=== PATIENT | male | born 1935 | race Caucasian/White ===

== ENCOUNTER 2017-11-27 16:53 | Inpatient (IN) ==
[2017-11-27] MEDS ORDERED: Naloxone 0.4 MG/ML INJ IVP PRN (20:07)
[2017-11-27] MEDS ORDERED: Acetaminophen 325 MG TABLET PO PRN (20:07)
--- NOTE | 2017-11-27 20:18 | Internal Med History&Physical ---
Date of Encounter: 11/27/17 Time of Encounter: 20:18 Internal Medicine - H&P: HPI Admitted From: Hospital to Hospital Transfer Plans for Post Hospital Care: Home History of present illness: Mr. Jo is a 82 year old male with history of recently diagnosed A. fib in July 2017 and started on aspirin, hypertension, chronic alcoholism 1 patient almost everyday for several years, remote a smoker quit almost 20 years back, history of mild stroke, COPD, CHF and unknown cardiac status was transferred from [facility] for further evaluation of syncope and possible CVA based on CT head report with acute versus subacute infarction right posterior cerebral artery. Patient lives alone and the her grandson checked on him almost every day. As per patient he fell on the floor and lost consciousness for a while nausea over the time around 8:00 tonight while going to the bed. When he regained consciousness he crawled to decreased to the bed. Today around 9:00 in the morning his grandson came to check on him and found him on the floor then he called EMS. Patient denied any prodromal symptoms before syncope attack. He never had syncope in the past. He denies chest pain, shortness of breath, palpitation, dizziness, sweating, headache, fever, chills, nausea, vomiting, abdominal pain, urinary complaint. Patient hit the back of the head and had superficial laceration on the scalp with minimal bleed. Past Med Surg Social Fam HX - Past Medical History Medical history: atrial fibrillation, CHF, COPD, glaucoma, hyperlipidemia, hypertension - Past Surgical History Surgical History: appendectomy - Social History Smoking Status: Former smoker Smokeless Tobacco Status: No Alcohol use: heavy Drug use: none Internal Medicine - H&P: Meds Aspirin [Lo-Dose Aspirin EC] 81 mg PO DAILY 11/27/17 [History] Folic Acid [Folic Acid] 1 mg PO DAILY 11/27/17 [History] Furosemide [Lasix] 40 mg PO BID 11/27/17 [History] Incruse Ellipta 1 puff IH DAILY 11/27/17 [History] Lisinopril [Zestril] 5 mg PO DAILY 11/27/17 [History] Metoprolol Succinate [Toprol Xl] 12.5 mg PO 11/27/17 [History] Estelline 5-325 mg 1 tab PO Q4H PRN 11/27/17 [History] Simvastatin [Zocor] 20 mg PO DAILY 11/27/17 [History] Symbicort 160/4.5 2 puff IH BID 11/27/17 [History] Ventolin Hfa 2 puff PO Q6H PRN 11/27/17 [History] 3 Allergy/AdvReac Type Severity Reaction Status Date / Time levofloxacin [From Levaquin] Allergy Rash Verified 11/27/17 20:26 Penicillins Allergy Anaphylaxis Verified 11/27/17 20:26 Sulfa (Sulfonamide Allergy Rash Verified 11/27/17 20:26 Antibiotics) All Systems PM: A 10-system review of systems was performed and is negative for pertinent findings except as documented above in the HPI. - Constitutional Vitals: Temp Pulse Resp BP Pulse Ox 98.2 F 63 18 112/85 98 11/27/17 18:44 11/27/17 18:44 11/27/17 18:44 11/27/17 18:44 11/27/17 18:44 Exam: General appearance: No acute distress, A&O X 3 Head exam: 2 Superficial linear laceration over the scalp and parietal area with no active bleeding. Eye exam: EOMI, PERRLA ENT exam: Moist oral mucosa Neck nontender, supple Respiratory exam: Clear to auscultation bilaterally Cardiovascular exam: Bradycardic with irregular rhythm, no systolic murmur Abdominal exam: Soft, nontender, nondistended, positive bowel sounds Extremities exam: No calf tenderness, no pedal edema Present: Skin-no rash, warm, dry, intact Neurological exam: Alert, awake, oriented 3, CN II-XII intact, no focal deficits. No facial droop. Normal speech. Normal gait. Motor 5 x 5 in all extremity except for +4/5 in right upper extremity but as per son it has been chronic since August this year - Assessment and plan (1) Syncope Current Visit: Yes Status: Acute Assessment and plan: needs to rule out underlying cardioneural etiology is contributing factor. Patient has recurrent fall and generalized weakness for last several months and has been undergoing physiotherapy intermittently. Recently diagnosed A. fib in July not on any anticoagulation except aspirin. CT brain done and was or ER with abnormal finding acute versus subacute right posterior cerebral artery infarction therefore transferred to this hospital for advance care. Will do CVA workup MRI brain, carotid ultrasound, echocardiogram. Will continue aspirin and statin. Beta petr on hold as patient was found to be bradycardic. Continue telemetry. Will consult neurologist after having a stroke workup. Patient does not have any new neurological focal deficit and seems like CT finding more chronic. Patient also needs to get assess by consumer safety officer that can be done on routine basis if needed by rounding physician. Fall, aspiration, seizure precaution. Swallow study. Qualifiers: Syncope type: heat syncope Encounter type: initial encounter Qualified Code(s): T67.1XXA - Heat syncope, initial encounter (2) Fall Current Visit: Yes Status: Acute Assessment and plan: The current fall. 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 May need long-term placement. Qualifiers: Encounter type: initial encounter Qualified Code(s): W19.XXXA - Unspecified fall, initial encounter (3) A-fib Current Visit: Yes Status: Chronic Assessment and plan: No RVR. Patient is not on anticoagulation. Telemetry. Beta petr on hold as patient was found to be bradycardic. Echocardiogram ordered. Will discuss about restarting anticoagulation based on Brett score. Qualifiers: Atrial fibrillation type: chronic Qualified Code(s): I48.2 - Chronic atrial fibrillation (4) Chronic alcoholism Current Visit: Yes Status: Chronic Assessment and plan: Alcohol level ordered. Chronic alcohol or drinking but not sure about withdrawal. Serial protocol is started. Banana bag also started. Ativan when necessary (5) Hypertension Current Visit: Yes Status: Acute Assessment and plan: Hold Lasix now. Close monitoring. Adjust home medication on discharge if needed Qualifiers: Hypertension type: essential hypertension Qualified Code(s): I10 - Essential (primary) hypertension (6) DVT prophylaxis Current Visit: Yes Status: Acute Assessment and plan: SCDs - Time Spent With Patient Total time spent is greater than 50% in coordination of care (as documented) at patient's floor/unit and/or counseling patient:
[2017-11-27] MEDS ORDERED: *HR* LORazepam 2 MG/ML VIAL IVP PRN (20:19)
[2017-11-27] MEDS ORDERED: MVI, adult with vitamin K 10 ML in 0.9 % Sodium Chloride 1,000 ML IVC ONE (20:19)
[2017-11-27 20:56] LABS: Hemoglobin 11.5 g/dL (12.9-16.9)
[2017-11-27 20:58] LABS: Basophils # 0.1 K/mcL (0.0-0.2); Basophils % 0.6 %; Eosinophils # 0.1 K/mcL (0.0-0.6); Eosinophils % 0.9 %; Hematocrit 33.8 % (37.5-50.1); Immature Granulocytes % 0.4 % (0-4); Immature Platelets 4.2 % (1.1-6.1); Lymphocytes # 1.8 K/mcL (0.6-4.6); Lymphocytes % 23.2 %; Mean Corpuscular Hemoglobin 33.3 pg (28.0-33.3); Mean Platelet Volume 10.9 fL (9.4-12.4); Monocytes # 0.7 K/mcL (0.0-1.3); Monocytes % 8.4 %; Neutrophils # 5.2 K/mcL (1.6-8.9); Red Blood Count 3.45 M/mcL (4.19-5.50); Red Cell Distribution Width 12.7 % (11.5-14.5); Segmented Neutrophils % 66.5 %
[2017-11-27] MEDS: *HR* HYDROcodone/Acet 5/325 mg TABLET PO PRN (20:59)
[2017-11-27] MEDS ORDERED: 0.9 % Sodium Chloride 1,000 ML IVC SCH (21:00)
[2017-11-27 21:03] LABS: INR 1.3; Prothrombin Time 14.1 Seconds (9.4-12.1)
[2017-11-27 21:13] LABS: Platelet Count 79 K/mcL (140-400)
[2017-11-27 21:24] LABS: Alanine Aminotransferase 12 Units/L (7-52); Albumin 2.9 g/dL (3.5-5.7); Albumin/Globulin Ratio 1.5 (1.1-2.2); Alkaline Phosphatase 108 Units/L (34-104); Aspartate Amino Transferase 40 Units/L (13-39); BUN/Creatinine Ratio 10 (6-26); Bilirubin,Total 2.9 mg/dL (0.3-1.0); Blood Urea Nitrogen 7 mg/dL (8-23); Calcium 8.1 mg/dL (8.6-10.3); Carbon Dioxide 21 mEq/L (23-29); Chloride 108 mEq/L (98-107); Creatine Kinase 287 Units/L (30-223); Ethanol 37 mg/dL (Less than 10); Globulin 1.9 g/dL (2.4-3.5); Glucose 62 mg/dL (70-105); Osmolality,Calculated 294 (280-300); Potassium 3.9 mEq/L (3.5-5.1); Sodium 144 mEq/L (136-145); Total Protein 4.8 g/dL (6.4-8.9); Troponin I 0.03 ng/mL (< 0.04); eGFR For African Americans > 60 (> 60); eGFR For Non-African Americans > 60 (> 60)
[2017-11-27] MEDS: Folic Acid 1 MG TABLET PO SCH (22:47)
[2017-11-27] MEDS: Aspirin Enteric Coated 81 MG Tablet PO SCH (22:47)
[2017-11-27] MEDS: Metoprolol XL (24 HR) Succ 25 MG TAB.ER.24H PO SCH (22:48)
[2017-11-28] MEDS: Budesonide/Formoterol 160/4.5 MDI IH SCH ×3 (03:13→20:51)
[2017-11-28 04:09] LABS: Troponin I 0.04 ng/mL (< 0.04)
[2017-11-28] MEDS: *HR* HYDROcodone/Acet 5/325 mg TABLET PO PRN ×2 (05:08→15:31)
[2017-11-28 05:42] LABS: Bilirubin,Urine Moderate (Negative); Blood,Urine Negative (Negative); Clarity,Urine Cloudy (Clear); Color,Urine Orange (Yellow); Glucose,Urine (UA) Normal (Normal); Ketones,Urine 40 mg/dL (Negative); Leukocyte Esterase,Urine Moderate (Negative); Nitrite,Urine Negative (Negative); Protein,Urine Trace mg/dL (Neg-Trace); Specific Gravity,Urine 1.026 (1.010-1.025); Urobilinogen,Urine Normal (Normal)
[2017-11-28 05:44] LABS: Squamous Epithelial Cell,Urine Many per lpf (None-Few); WBC,Urine 50-100 per hpf (0-3)
[2017-11-28 05:50] LABS: Amphetamine Screen,Urine Negative ng/mL (Cutoff=1000); Barbiturate Screen,Urine Negative ng/mL (Cutoff=200); Benzodiazepines Screen,Urine Negative ng/mL (Cutoff=200); Cannabinoid Screen,Urine Negative ng/mL (Cutoff = 50); Cocaine Screen,Urine Negative ng/mL (Cutoff= 300); Opiate Screen,Urine Positive ng/mL (Cutoff=300); Phencyclidine Screen,Urine Negative ng/mL (Cutoff=25)
[2017-11-28 05:55] LABS: Bacteria,Urine Few per hpf (None-Few); RBC,Urine 0-3 per hpf (0-3)
[2017-11-28 05:56] LABS: Mucus,Urine Few (Few)
[2017-11-28] MEDS ORDERED: Aspirin Enteric Coated 81 MG Tablet PO SCH (09:00)
[2017-11-28] MEDS ORDERED: INCRUSE ELLIPTA IH SCH (09:00)
[2017-11-28] MEDS ORDERED: Aspirin 81 MG TAB.CHEW PO SCH (09:00)
[2017-11-28] MEDS ORDERED: *HR* LORazepam 2 MG/ML VIAL IVP PRN ×2 (09:27)
--- NOTE | 2017-11-28 09:27 | Internal Med Progress Note ---
Date of Encounter: 11/28/17 Time of Encounter: 09:26 - Assessment and plan (1) CVA (cerebral vascular accident) Current Visit: Yes Status: Acute Assessment and plan: Recently diagnosed A. fib in July not on any anticoagulation except aspirin. CT brain done and was or ER with abnormal finding acute versus subacute right posterior cerebral artery infarction therefore transferred to this hospital for advance care. carotid ultrasound, echocardiogram pending, continue aspirin and statin. Physical therapy order, fall precautions Continue telemetry. Neurology consult MRI of the brain showed:1. No acute intracranial abnormality. 2. 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 3. Diffuse parenchymal volume loss with mild chronic white matter microvascular ischemic changes. 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 May need long-term placement. Qualifiers: Encounter type: initial encounter Qualified Code(s): W19.XXXA - Unspecified fall, initial encounter (4) A-fib Current Visit: Yes Status: Chronic Assessment and plan: No RVR. Patient is not on anticoagulation (alcohol abuse and high risk of falling). Telemetry. Echocardiogram ordered. Qualifiers: Atrial fibrillation type: chronic Qualified Code(s): I48.2 - Chronic atrial fibrillation (5) Chronic alcoholism Current Visit: Yes Status: Chronic Assessment and plan: Alcohol level was 37 Chronic alcohol or drinking but not sure about withdrawal. Drinks 1 pint of whiskey every day Start low dose Librium, Ativan IV as needed (6) Hypertension Current Visit: Yes Status: Acute Assessment and plan: Hold Lasix. Close monitoring. Adjust home medication on discharge if needed May continue lisinopril The patient was on Lopressor 12.5 mg twice a day but was found to be bradycardic , this was switched to Toprol 12.5 mg daily, his currently stable Qualifiers: Hypertension type: essential hypertension Qualified Code(s): I10 - Essential (primary) hypertension (7) Rhabdomyolysis Current Visit: Yes Status: Acute Assessment and plan: Due to trauma Mild hydration Qualifiers: Rhabdomyolysis type: traumatic Encounter type: sequela Qualified Code(s) : T79.6XXS - Traumatic ischemia of muscle, sequela - Time Spent With Patient Total time spent is greater than 50% in coordination of care (as documented) at patient's floor/unit and/or counseling patient: - Subjective Interval history: Complains of pain everywhere but less than yesterday, denies any dizziness, no abdominal pain, fevers, chest or shortness of breath, no dysuria or diarrhea - Constitutional Vitals: Temp Pulse Resp BP Pulse Ox 97.9 F 63 16 127/70 98 11/28/17 07:45 11/28/17 07:45 11/28/17 07:50 11/28/17 07:45 11/28/17 07:50 General appearance: Present: A&O X 3 - Head Head exam: Present: atraumatic, normocephalic - Eye Eye exam: Present: conjuntiva pink, sclera anicteric. 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 - Neck Neck exam general surgery: Present: supple, trachea midline. Absent: lymphadenopathy Additional comments: 2 cm occipital scalp laceration not infected - Respiratory Respiratory exam: Present: decreased breath sounds, CTAB. Absent: accessory muscle use, rales, rhonchi, wheezes - Cardiovascular Cardiovascular exam: Present: RRR, +S1, +S2. Absent: diastolic murmur, gallop, rubs, systolic murmur - GI/Abdominal GI/Abdominal exam: Present: normal bowel sounds, soft, no peritoneal signs. Absent: distended, tenderness - Extremities Exam Extremities exam: Present: warm, radial pulses palpable and symmetrical. Absent : calf tenderness, cyanotic, pedal edema Additional comments: left upper extremity minimal weakness - Neurological Exam Neurological exam: Present: CN II-XII intact, oriented X3, no focal deficits. Absent: pronater drift, facial droop, speech deficit - Skin Skin exam: Present: dry, intact Internal Medicine: Result - Labs CBC & Chem 7: 11/27/17 20:42 11/27/17 20:42 Labs: Short CBC 11/27/17 Range/Units 20:42 WBC 7.8 (4.3-11.1) K/mcL Hgb 11.5 L (12.9-16.9) g/dL Hct 33.8 L (37.5-50.1) % Plt Count 79 L (140-400) K/mcL Neutrophils # 5.2 (1.6-8.9) K/mcL BMP 11/27/17 20:42 Sodium 144 Potassium 3.9 Chloride 108 H Carbon Dioxide 21 L BUN 7 L Creatinine 0.70 Glucose 62 L Calcium 8.1 L Cardiac Enzymes 11/27/17 11/28/17 Range/Units 20:42 03:17 Troponin I 0.03 0.04 H* (< 0.04) ng/mL Liver Function 11/27/17 Range/Units 20:42 Total Bilirubin 2.9 H (0.3-1.0) mg/dL AST 40 H (13-39) Units/L ALT 12 (7-52) Units/L Alkaline Phosphatase 108 H (34-104) Units/L Albumin 2.9 L (3.5-5.7) g/dL Urine 11/28/17 Range/Units 05:20 Urine Color [place] A (Yellow) Urine Clarity Cloudy A (Clear) Urine pH 6.0 (5.0-8.0) pH Units Ur Specific [place] 1.026 H (1.010-1.025) Urine Protein Trace (Neg-Trace) mg/dL Urine Glucose (UA) Normal (Normal) mg/dL - ABG Interpretation ABG results: PT/INR, D-dimer PT 14.1 Seconds (9.4-12.1) H 11/27/17 20:42 - Impressions Impressions Brain MRI 11/27/17 20:22 IMPRESSION: 1. No acute intracranial abnormality. 2. 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 3. Diffuse parenchymal volume loss with mild chronic white matter microvascular ischemic changes. D/ / Frnacesco Mantilla / Francesco Mantilla Interpreting Provider: Francesco Mantilla - VTE Documentation of Mechanical Device: Intermittent pneumatic compression device Consult Discharge Plan - Plan Referrals: Jayden Romero MD [Primary Care Provider] -
--- NOTE | 2017-11-28 10:40 | Neurology - Consult Note ---
<Tigre Marlow - Last Filed: 11/28/17 10:35> Date of Encounter: 11/28/17 Time of Encounter: 10:35 Assessment and Plan (1) CVA (cerebral vascular accident) Current Visit: Yes Status: Acute Neuro exam nonfocal and nonlateralizing. 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 hx of afib not on anticoagulation currently he is rate controlled. Continue aspirin and statin, echocardiogran, carotid duplex pending. 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 both times he was getting up from sitting position. orthostatic vitals ordered patient also on norco: would stop before discharge as it likely increase chance of falls along with use of alcohol. Qualifiers: Encounter type: initial encounter Qualified Code(s): W19.XXXA - Unspecified fall, initial encounter (3) A-fib Current Visit: Yes Status: Chronic afib without rvr on metoprolol not good candidate to anticoagulate due to hx of falls, alcohol use, right eye blindness, lives alone at home and relines on walker to ambulate Qualifiers: Atrial fibrillation type: chronic Qualified Code(s): I48.2 - Chronic atrial fibrillation (4) Hypertension Current Visit: Yes Status: Acute controlled. continue home meicaitons. Qualifiers: Hypertension type: essential hypertension Qualified Code(s): I10 - Essential (primary) hypertension (5) Chronic alcoholism Current Visit: Yes Status: Chronic on ciwa History of Present Illness Chief complaint: syncope HPI: Mr. Jo is a 82 year old male presented with chief complaint of syncope and fall. Patient reports walking to his bed Tuesday at 8 PM night and falling with loss of consciousness. Patient's son found him Tuesday morning at 9 AM on the floor and called EMS. Patient denies having chest pain, shortness of breath, palpitations, dizziness, numbness, tingling, weakness on one side compared to the other, slurred speech before falling. Patient presented to [facility] ER for evaluation and CT of the head showed acute versus subacute infarct in the right posterior cerebral artery. He was then transferred to [address]. He was also found to have superficial laceration of the scalp in the occipital region. He reports this has happened in the past 6 months ago when he was walking to his bathroom and also fell again but did not lose consciousness and was able to get up by himself. He denied head trauma at that time. Patient denies history of seizure, CVA, head trauma. 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 Patient uses a walker at home. Patient lives alone at home and has family members check on him once a day. Past Med Surg Social Fam HX - Past Medical History Medical history: atrial fibrillation, CHF, COPD, glaucoma, hyperlipidemia, hypertension - Past Surgical History Surgical History: appendectomy - Social History Smoking Status: Former smoker Smokeless Tobacco Status: No Alcohol use: heavy Drug use: none Medications and Allergies Albuterol Sulfate [Ventolin Hfa] 2 puff IH Q6H PRN 11/27/17 [History] Aspirin [Lo-Dose Aspirin EC] 81 mg PO DAILY 11/27/17 [History] Budesonide/Formoterol 160/4.5 [Symbicort 160/4.5] 2 puff IH BIDR 11/27/17 [ History] Folic Acid [Folic Acid] 1 mg PO DAILY 11/27/17 [History] Furosemide [Lasix] 40 mg PO BID 11/27/17 [History] HYDROcodone/Acet 5/325 mg [[place] 5-325 mg] 1 tab PO Q4H PRN 11/27/17 [History] Lisinopril [Zestril] 5 mg PO DAILY 11/27/17 [History] Metoprolol Succinate [Toprol Xl] 12.5 mg PO BID 11/27/17 [History] Simvastatin [Zocor] 20 mg PO DAILY 11/27/17 [History] Umeclidinium [place] [Incruse Ellipta] 1 puff IH DAILY 11/27/17 [History] 3 Allergy/AdvReac Type Severity Reaction Status Date / Time levofloxacin [From Levaquin] Allergy Rash Verified 11/27/17 20:26 Penicillins Allergy Anaphylaxis Verified 11/27/17 20:26 Sulfa (Sulfonamide Allergy Rash Verified 11/27/17 20:26 Antibiotics) All Systems: The remainder of the systems were reviewed and are negative Review of Systems: Constitutional: Denies fever, chills HEENT: Denies headache, vision changes, neck pain, sore throat, rhinorrhea Heart: Denies chest pain palpitations Lungs: Denies shortness of breath cough Abdomen: Denies abdominal pain nausea vomiting diarrhea Back: Denies back pain Kidney: Denies dysuria, hematuria Skin: warm and dry Extremities: Reports lower extremity swelling, reports pain in bilateral shoulders, bilateral hip. Neuro: As per history of present illness Physical Examination - Vital Signs Vital Signs: Initial Vital Signs Temp Pulse Resp BP Pulse Ox 98.2 F 63 18 112/85 98 11/27/17 18:44 11/27/17 18:44 11/27/17 18:44 11/27/17 18:44 11/27/17 18:44 - Exam Exam: General: Pleasant without distress HEENT: Superficial laceration of the occipital region of head without bleeding, neck nontender to palpation, absent lymphadenopathy, Moist Mucous Membranes, Heart: Irregularly irregular rhythm with no murmur Lungs: Clear to auscultation bilaterally Abdomen: Soft nontender, nondistended positive bowel sounds Skin: warm and dry Extremities: 2+ pedal edema bilaterally Vascular: Pedal and radial pulses 2 out of 4 - Constitutional General appearance: comfortable - Neurologic Sensorimotor examination: intact Motor examination - right side: 4/5: deltoids, biceps, triceps, wrist flexion, wrist extension, security director, hip flexors, tibialis Anterior, quadriceps, toe extension (EHL), plantarflexion Motor examination - left side: 4/5: deltoids, biceps, triceps, wrist flexion, wrist extension, hip flexors, security director, quadriceps, tibialis Anterior, toe extension (EHL), plantarflexion Detailed sensory examination: light touch Reflexes: Biceps: 3+, Triceps: 3+, Brachioradialis: 3+, Patella: 3+, Achilles: 3 + Mental Status Examination: awake, alert, oriented to person, oriented to place, oriented to time, follows commands appropriately, answers questions appropriately, no agnosia, no aphasia, no aproxia Cranial nerve examination: PERRL (On the left only. Right pupil is constantly dilated this is, chronic and does not react to light), EOMI, sensory to face intact, mastication intact, no facial asymmetry is present, no dysarthria, hearing is intact symmetrically, flexes SCM and trapezius muscles symmetrically with full power, tongue protrudes midline, no atrophy or facial fasiculations present Cerebellar examination: no dysmetria, no difficulty with rapid alternating movements Results - Laboratory Findings CBC and BMP: 11/27/17 20:42 11/27/17 20:42 Abnormal lab findings: Abnormal lab results RBC 3.45 M/mcL (4.19-5.50) L 11/27/17 20:42 Hgb 11.5 g/dL (12.9-16.9) L 11/27/17 20:42 Hct 33.8 % (37.5-50.1) L 11/27/17 20:42 Plt Count 79 K/mcL (140-400) L 11/27/17 20:42 PT 14.1 Seconds (9.4-12.1) H 11/27/17 20:42 Chloride 108 mEq/L (98-107) H 11/27/17 20:42 Carbon Dioxide 21 mEq/L (23-29) L 11/27/17 20:42 BUN 7 mg/dL (8-23) L 11/27/17 20:42 Glucose 62 mg/dL (70-105) L 11/27/17 20:42 POC Glucose 66 mg/dL (70-99) L 11/28/17 05:25 Calcium 8.1 mg/dL (8.6-10.3) L 11/27/17 20:42 Total Bilirubin 2.9 mg/dL (0.3-1.0) H 11/27/17 20:42 AST 40 Units/L (13-39) H 11/27/17 20:42 Alkaline Phosphatase 108 Units/L (34-104) H 11/27/17 20:42 Creatine Kinase 403 Units/L (30-223) H 11/28/17 03:17 Troponin I 0.04 ng/mL (< 0.04) H* 11/28/17 09:10 Serum Total Protein 4.8 g/dL (6.4-8.9) L 11/27/17 20:42 Albumin 2.9 g/dL (3.5-5.7) L 11/27/17 20:42 Globulin 1.9 g/dL (2.4-3.5) L 11/27/17 20:42 Urine Color [place] (Yellow) A 11/28/17 05:20 Urine Clarity Cloudy (Clear) A 11/28/17 05:20 Ur Specific [place] 1.026 (1.010-1.025) H 11/28/17 05:20 Urine Ketones 40 mg/dL (Negative) H 11/28/17 05:20 Urine Bilirubin Moderate (Negative) H 11/28/17 05:20 Ur Leukocyte Esterase Moderate (Negative) H 11/28/17 05:20 Urine Microscopic WBC 50-100 per hpf (0-3) H 11/28/17 05:20 Ur Squamous Epith Cells Many per lpf (None-Few) H 11/28/17 05:20 Urine Opiates Screen Positive ng/mL (Rwjvar=115) H 11/28/17 05:20 Ethyl Alcohol 37 mg/dL (Less than 10) H 11/27/17 20:42 Consult Discharge Plan - Plan Referrals: Jayden Romero MD [Primary Care Provider] - <Augustin Estrada - Last Filed: 11/28/17 16:33> Date of Encounter: 11/28/17 Time of Encounter: 16:23 Assessment and Plan (1) CVA (cerebral vascular accident) Current Visit: Yes Status: Acute As above. I suspect that this patient may have experienced a cardioembolic event given the history of atrial fibrillation. The echocardiogram however this time reveals no embolic source. Carotid Doppler study reveals nonstenotic plaquing and calcification at the bifurcation bilaterally. He does however have other risk factors including his age, and a history of drinking. I am also concerned that he is not an optimal patient for anticoagulation because of the recent turn of events. He did fall and strike his head and suffering some scalp trauma. But he was not able to get up on his own he was not found until the next morning. I will recommend increasing his aspirin to 325 mg along with a statin. Might consider changing his blockers as his heart rate is been running in the 40s and 50s which may have been a potential cause of his syncope. The EEG was negative for seizure activity. We will reassess him tomorrow. 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 The case was discussed with the internal medicine resident on service. I agree with his assessment and documentation as stated above. I did review his EEG which was essentially normal however I did reveal sinus bradycardia at 48 bpm. Currently he is awake and alert sitting up in bed talking with other family members. He lives home alone and apparently fell on the floor was not able to contact family because he could not reach his family could not get off the floor. His son found him 9:00 in the morning the following day. I did review the MRI scan of the brain which reveals subacute infarct in the right parietal occipital lobe region with laminar necrosis present. He also has a history of atrial fibrillation. All Systems: The remainder of the systems were reviewed and are negative Review of Systems: Agree with review of systems as above. Physical Examination - Vital Signs Vital Signs: Initial Vital Signs Temp Pulse Resp BP Pulse Ox 98.2 F 63 18 112/85 98 11/27/17 18:44 11/27/17 18:44 11/27/17 18:44 11/27/17 18:44 11/27/17 18:44 - Neurologic Cranial nerve examination: PERRL (Patient is blind in his right eye) Results - Laboratory Findings CBC and BMP: 11/27/17 20:42 11/27/17 20:42 Abnormal lab findings: Abnormal lab results RBC 3.45 M/mcL (4.19-5.50) L 11/27/17 20:42 Hgb 11.5 g/dL (12.9-16.9) L 11/27/17 20:42 Hct 33.8 % (37.5-50.1) L 11/27/17 20:42 Plt Count 79 K/mcL (140-400) L 11/27/17 20:42 PT 14.1 Seconds (9.4-12.1) H 11/27/17 20:42 Chloride 108 mEq/L (98-107) H 11/27/17 20:42 Carbon Dioxide 21 mEq/L (23-29) L 11/27/17 20:42 BUN 7 mg/dL (8-23) L 11/27/17 20:42 Glucose 62 mg/dL (70-105) L 11/27/17 20:42 POC Glucose 66 mg/dL (70-99) L 11/28/17 05:25 Calcium 8.1 mg/dL (8.6-10.3) L 11/27/17 20:42 Total Bilirubin 2.9 mg/dL (0.3-1.0) H 11/27/17 20:42 AST 40 Units/L (13-39) H 11/27/17 20:42 Alkaline Phosphatase 108 Units/L (34-104) H 11/27/17 20:42 Creatine Kinase 403 Units/L (30-223) H 11/28/17 03:17 Troponin I 0.04 ng/mL (< 0.04) H* 11/28/17 09:10 Serum Total Protein 4.8 g/dL (6.4-8.9) L 11/27/17 20:42 Albumin 2.9 g/dL (3.5-5.7) L 11/27/17 20:42 Globulin 1.9 g/dL (2.4-3.5) L 11/27/17 20:42 Urine Color [place] (Yellow) A 11/28/17 05:20 Urine Clarity Cloudy (Clear) A 11/28/17 05:20 Ur Specific [place] 1.026 (1.010-1.025) H 11/28/17 05:20 Urine Ketones 40 mg/dL (Negative) H 11/28/17 05:20 Urine Bilirubin Moderate (Negative) H 11/28/17 05:20 Ur Leukocyte Esterase Moderate (Negative) H 11/28/17 05:20 Urine Microscopic WBC 50-100 per hpf (0-3) H 11/28/17 05:20 Ur Squamous Epith Cells Many per lpf (None-Few) H 11/28/17 05:20 Urine Opiates Screen Positive ng/mL (Vnfggk=535) H 11/28/17 05:20 Ethyl Alcohol 37 mg/dL (Less than 10) H 11/27/17 20:42
[2017-11-28] MEDS ORDERED: Perflutren Lipid Microsphere 1.3 ML in 0.9 % Sodium Chloride 8.7 ML IVP ONE (10:43)
[2017-11-28] MEDS ORDERED: Perflutren Lipid Microsphere 2 ML VIAL ONE (10:47)
[2017-11-28] MEDS: Metoprolol XL (24 HR) Succ 25 MG TAB.ER.24H PO SCH (12:38)
[2017-11-28] MEDS: Aspirin Enteric Coated 81 MG Tablet PO SCH (12:38)
[2017-11-28] MEDS: Folic Acid 1 MG TABLET PO SCH (12:38)
--- NOTE | 2017-11-28 16:37 | EEG/EMG/Oth Biometrics Report ---
EEG Procedure Report Date of procedure: 11/28/17 EEG Procedure: Routine EEG Procedure Note: This is a report of a 21 channel bipolar and referential montage EEG. A posterior dominant rhythm consisted of 8-10 Hz low voltage alpha frequency identified symmetrically in the posterior head regions. This rhythm attenuates symmetrically evaluating. Hyperventilation is not performed in recording. No sleep activity is identified during the study. Photostimulation is performed and does not produce a driving response. The EKG rhythm strip reveals sinus bradycardia at about 48 bpm. Impressions: This EEG recording is within normal limits. There is no evidence of epileptiform activity identified during the study. Comment: Sinus bradycardia at 48 bpm is present. Please correlate clinically.
[2017-11-28] MEDS: 0.9 % Sodium Chloride 1,000 ML IVC SCH (23:23)
--- NOTE | 2017-11-29 08:04 | Neurology Progress Note ---
<Tigre Marlow - Last Filed: 11/29/17 09:06> Date of Encounter: 11/29/17 Time of Encounter: 09:07 Assessment and Plan (1) CVA (cerebral vascular accident) Current Visit: Yes Status: Acute Neuro exam nonfocal and nonlateralizing. 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 hx of afib not on anticoagulation currently he is rate controlled. EEG negative for epileptiform activity echocardiogran did not show evidence of cardioemboic source carotid duplex preliminary: Non stenotic highly irregular calcified plaque located in the Bifurcation/ICA bilaterally. PT/OT-recommend skilled services outpatient. continue aspirin and statin. 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 both times he was getting up from sitting position. patient also on norco: would stop before discharge as it likely increase chance of falls along with use of alcohol. will need skilled rehab services. Qualifiers: Encounter type: initial encounter Qualified Code(s): W19.XXXA - Unspecified fall, initial encounter (3) A-fib Current Visit: Yes Status: Chronic afib without rvr during EEG patients HR was in 40s. may have sick sinus syndrome which could be cause of fall/syncope. metoprolol held by primary team not good candidate to anticoagulate due to hx of falls, alcohol use, right eye blindness, lives alone at home and relines on walker to ambulate started on aspirin 325 Qualifiers: Atrial fibrillation type: chronic Qualified Code(s): I48.2 - Chronic atrial fibrillation (4) Hypertension Current Visit: Yes Status: Acute controlled. continue home meicaitons. Qualifiers: Hypertension type: essential hypertension Qualified Code(s): I10 - Essential (primary) hypertension (5) Chronic alcoholism Current Visit: Yes Status: Chronic on ciwa Subjective Principal diagnosis: CVA Interval history: This morning patient complains of soreness in b/l hips and shoulders. Patient unable to transfer from bed to bathroom by himself needed maximum assistance. Around midnight patient was confused and thought he was at home. Objective - Constitutional Vitals: Temp Pulse Resp BP Pulse Ox 97.4 F L 56 17 127/63 94 11/29/17 07:51 11/29/17 07:51 11/29/17 07:51 11/29/17 07:51 11/29/17 07:51 - Neurological Exam Sensorimotor examination: Present: intact Motor examination - right side: 4/5: deltoids, biceps, triceps, wrist flexion, wrist extension, head mixer, hip flexors, tibialis Anterior, quadriceps, toe extension (EHL), plantarflexion Motor examination - left side: 4/5: deltoids, biceps, triceps, wrist flexion, wrist extension, hip flexors, head mixer, quadriceps, tibialis Anterior, toe extension (EHL), plantarflexion Sensation intact: Present: light touch Reflexes: Biceps: 3+, Triceps: 3+, Brachioradialis: 3+, Patella: 3+, Achilles: 3 + Mental Status Examination: Present: awake, alert, oriented to person, oriented to place, oriented to time, follows commands appropriately, answers questions appropriately, no agnosia, no aphasia, no aproxia Cranial nerve examination: Present: PERRL (Patient is blind in his right eye), EOMI Cerebellar examination: Present: no dysmetria, no difficulty with rapid alternating movements - Other Additional findings: General: without distress Heart: Irregularly irregular Lungs: Wheezing, diminished bilaterally Abdomen: Soft nontender, nondistended positive bowel sounds Skin: warm and dry Extremities: 1+ pedal edema Vascular: Pedal and radial pulses 2 out of 4 - VTE Documentation of Mechanical Device: Intermittent pneumatic compression device Results - Laboratory Findings CBC and BMP: 11/27/17 20:42 11/27/17 20:42 Abnormal lab findings: Abnormal lab results RBC 3.45 M/mcL (4.19-5.50) L 11/27/17 20:42 Hgb 11.5 g/dL (12.9-16.9) L 11/27/17 20:42 Hct 33.8 % (37.5-50.1) L 11/27/17 20:42 Plt Count 79 K/mcL (140-400) L 11/27/17 20:42 PT 14.1 Seconds (9.4-12.1) H 11/27/17 20:42 Chloride 108 mEq/L (98-107) H 11/27/17 20:42 Carbon Dioxide 21 mEq/L (23-29) L 11/27/17 20:42 BUN 7 mg/dL (8-23) L 11/27/17 20:42 Glucose 62 mg/dL (70-105) L 11/27/17 20:42 POC Glucose 143 mg/dL (70-99) H 11/28/17 19:21 Calcium 8.1 mg/dL (8.6-10.3) L 11/27/17 20:42 Total Bilirubin 2.9 mg/dL (0.3-1.0) H 11/27/17 20:42 AST 40 Units/L (13-39) H 11/27/17 20:42 Alkaline Phosphatase 108 Units/L (34-104) H 11/27/17 20:42 Creatine Kinase 403 Units/L (30-223) H 11/28/17 03:17 Troponin I 0.04 ng/mL (< 0.04) H* 11/28/17 09:10 Serum Total Protein 4.8 g/dL (6.4-8.9) L 11/27/17 20:42 Albumin 2.9 g/dL (3.5-5.7) L 11/27/17 20:42 Globulin 1.9 g/dL (2.4-3.5) L 11/27/17 20:42 Urine Color [place] (Yellow) A 11/28/17 05:20 Urine Clarity Cloudy (Clear) A 11/28/17 05:20 Ur Specific [place] 1.026 (1.010-1.025) H 11/28/17 05:20 Urine Ketones 40 mg/dL (Negative) H 11/28/17 05:20 Urine Bilirubin Moderate (Negative) H 11/28/17 05:20 Ur Leukocyte Esterase Moderate (Negative) H 11/28/17 05:20 Urine Microscopic WBC 50-100 per hpf (0-3) H 11/28/17 05:20 Ur Squamous Epith Cells Many per lpf (None-Few) H 11/28/17 05:20 Urine Opiates Screen Positive ng/mL (Usgszv=460) H 11/28/17 05:20 Ethyl Alcohol 37 mg/dL (Less than 10) H 11/27/17 20:42 Consult Discharge Plan - Plan Referrals: Jayden Romero MD [Primary Care Provider] - <Augustin Estrada Carol - Last Filed: 11/29/17 15:18> Date of Encounter: 11/29/17 Time of Encounter: 15:13 Assessment and Plan (1) CVA (cerebral vascular accident) Current Visit: Yes Status: Acute 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 He also takes [place] for back pain which may have interfered with his balance and coordination. He was a beta petr which has been stopped therefore peripherally he stabilizes abnormal sinus rhythm. EEG is no evidence of seizure , and then also been some weakness associated with the right parietal infarct. Recommend maintaining aspirin daily as it is not a good candidate for anticoagulation, continue the pain management and statin therapy. He will very likely need to be an extended care facility to strengthen, and to determine the long-term plans is he will not be a good candidate to be home alone. I will reevaluate him at your request. Qualifiers: Encounter type: initial encounter Qualified Code(s): W19.XXXA - Unspecified fall, initial encounter Subjective Interval history: As above. The chart was reviewed, patient was seen and examined independently. Case was discussed with Dr. Marlow. Patient is in no acute distress lying in bed several family members and friends are present. His workup has been completed. EEG revealed no evidence of epileptiform activity and was essentially normal. However we have identified sinus bradycardia into the 40s from time to time. Carotid duplex Doppler study was unremarkable. Sedimentation rate was negative as well. At this juncture I suspect it is fall was either due to syncopal episode, or perhaps due to other multiple factors such as perhaps neuropathy associated with his alcoholism, perhaps deconditioning is a factor as well. Objective - Constitutional Vitals: Temp Pulse Resp BP Pulse Ox 97.5 F L 65 17 123/61 94 11/29/17 11:41 11/29/17 11:41 11/29/17 11:41 11/29/17 11:41 11/29/17 11:41 Results - Laboratory Findings CBC and BMP: 11/29/17 13:24 11/29/17 09:39 Abnormal lab findings: Abnormal lab results RBC 3.16 M/mcL (4.19-5.50) L 11/29/17 13:24 Hgb 10.7 g/dL (12.9-16.9) L 11/29/17 13:24 Hct 32.9 % (37.5-50.1) L 11/29/17 13:24 MCV 104.1 fL (83.0-100.0) H D 11/29/17 13:24 MCH 33.9 pg (28.0-33.3) H 11/29/17 13:24 Plt Count 57 K/mcL (140-400) L 11/29/17 13:24 Immature Plt Fraction 8.0 % (1.1-6.1) H 11/29/17 13:24 PT 14.1 Seconds (9.4-12.1) H 11/27/17 20:42 Chloride 111 mEq/L (98-107) H 11/29/17 09:39 Glucose 137 mg/dL (70-105) H 11/29/17 09:39 POC Glucose 143 mg/dL (70-99) H 11/28/17 19:21 Calcium 7.7 mg/dL (8.6-10.3) L 11/29/17 09:39 Total Bilirubin 2.9 mg/dL (0.3-1.0) H 11/27/17 20:42 AST 40 Units/L (13-39) H 11/27/17 20:42 Alkaline Phosphatase 108 Units/L (34-104) H 11/27/17 20:42 Creatine Kinase 1018 Units/L (30-223) H 11/29/17 09:39 Serum Total Protein 4.8 g/dL (6.4-8.9) L 11/27/17 20:42 Albumin 2.9 g/dL (3.5-5.7) L 11/27/17 20:42 Globulin 1.9 g/dL (2.4-3.5) L 11/27/17 20:42 Urine Color [place] (Yellow) A 11/28/17 05:20 Urine Clarity Cloudy (Clear) A 11/28/17 05:20 Ur Specific [place] 1.026 (1.010-1.025) H 11/28/17 05:20 Urine Ketones 40 mg/dL (Negative) H 11/28/17 05:20 Urine Bilirubin Moderate (Negative) H 11/28/17 05:20 Ur Leukocyte Esterase Moderate (Negative) H 11/28/17 05:20 Urine Microscopic WBC 50-100 per hpf (0-3) H 11/28/17 05:20 Ur Squamous Epith Cells Many per lpf (None-Few) H 11/28/17 05:20 Urine Opiates Screen Positive ng/mL (Mmbrxo=058) H 11/28/17 05:20 Ethyl Alcohol 37 mg/dL (Less than 10) H 11/27/17 20:42
[2017-11-29] MEDS: Budesonide/Formoterol 160/4.5 MDI IH SCH (08:25)
[2017-11-29] MEDS: Folic Acid 1 MG TABLET PO SCH (09:30)
[2017-11-29] MEDS: *HR* HYDROcodone/Acet 5/325 mg TABLET PO PRN (09:45)
--- NOTE | 2017-11-29 10:24 | Internal Med Progress Note ---
Date of Encounter: 11/29/17 Time of Encounter: 10:22 - Assessment and plan (1) CVA (cerebral vascular accident) Current Visit: Yes Status: Acute Assessment and plan: Recently diagnosed A. fib in July not on any anticoagulation except aspirin. CT brain done and was or ER with abnormal finding acute versus subacute right posterior cerebral artery infarction therefore transferred to this hospital for advance care. carotid ultrasound, echocardiogram pending, continue aspirin and statin. Physical therapy order, fall precautions Continue telemetry. Neurology consult MRI of the brain showed:1. No acute intracranial abnormality. 2. 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 3. Diffuse parenchymal volume loss with mild chronic white matter microvascular ischemic changes. 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 Qualifiers: Encounter type: initial encounter Qualified Code(s): W19.XXXA - Unspecified fall, initial encounter (4) A-fib Current Visit: Yes Status: Chronic Assessment and plan: No RVR. Patient is not on anticoagulation (alcohol abuse and high risk of falling). Telemetry. Echocardiogram showed an ejection fraction of 65% with moderate tricuspid regurgitation. Qualifiers: Atrial fibrillation type: chronic Qualified Code(s): I48.2 - Chronic atrial fibrillation (5) Chronic alcoholism Current Visit: Yes Status: Chronic Assessment and plan: Alcohol level was 37 Chronic alcohol or drinking but not sure about withdrawal. Drinks 1 pint of whiskey every day Decrease dose of Librium, Ativan IV as needed (6) Hypertension Current Visit: Yes Status: Acute Assessment and plan: Hold Lasix. Close monitoring. Adjust home medication on discharge if needed May continue lisinopril The patient was on Lopressor 12.5 mg twice a day but was found to be bradycardic , this was switched to Toprol 12.5 mg daily, his currently stable Qualifiers: Hypertension type: essential hypertension Qualified Code(s): I10 - Essential (primary) hypertension (7) Rhabdomyolysis Current Visit: Yes Status: Acute Assessment and plan: Due to trauma Mild hydration Qualifiers: Rhabdomyolysis type: traumatic Encounter type: sequela Qualified Code(s) : T79.6XXS - Traumatic ischemia of muscle, sequela (8) Conjunctivitis Current Visit: Yes Status: Acute Assessment and plan: Start ciprofloxacin ophthalmic solution Qualifiers: Conjunctivitis type: acute Acute conjunctivitis type: bacterial Laterality: bilateral Qualified Code(s): H10.33 - Unspecified acute conjunctivitis, bilateral (9) Generalized pain Current Visit: Yes Status: Acute Assessment and plan: Check ESR for possible polymyalgia rheumatica May continue prednisone PMR is confirmed - Time Spent With Patient Total time spent is greater than 50% in coordination of care (as documented) at patient's floor/unit and/or counseling patient: - Subjective Interval history: Complains of pain everywhere, mainly on his shoulders and hips, denies any dizziness, no abdominal pain, fevers, chest or shortness of breath, no dysuria or diarrhea - Constitutional Vitals: Temp Pulse Resp BP Pulse Ox 97.4 F L 56 18 127/63 96 11/29/17 07:51 11/29/17 07:51 11/29/17 08:26 11/29/17 07:51 11/29/17 08:26 General appearance: Present: A&O X 3 Exam: - Head Head exam: Present: atraumatic, normocephalic - Eye Eye exam: Present: conjuntiva pink, sclera anicteric. 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 - Neck Neck exam general surgery: Present: supple, trachea midline. Absent: lymphadenopathy Additional comments: 2 cm occipital scalp laceration not infected - Respiratory Respiratory exam: Present: decreased breath sounds, CTAB. Absent: accessory muscle use, rales, rhonchi, wheezes - Cardiovascular Cardiovascular exam: Present: RRR, +S1, +S2. Absent: diastolic murmur, gallop, rubs, systolic murmur - GI/Abdominal GI/Abdominal exam: Present: normal bowel sounds, soft, no peritoneal signs. Absent: distended, tenderness - Extremities Exam Extremities exam: Present: warm, radial pulses palpable and symmetrical. Absent : calf tenderness, cyanotic, pedal edema Additional comments: left upper extremity minimal weakness, pain is elicited while trying to raise his arms and legs - Neurological Exam Neurological exam: Present: CN II-XII intact, oriented X3, no focal deficits. Absent: pronater drift, facial droop, speech deficit - Skin Skin exam: Present: dry, intact Internal Medicine: Result - Labs CBC & Chem 7: 11/27/17 20:42 11/27/17 20:42 - ABG Interpretation ABG results: PT/INR, D-dimer PT 14.1 Seconds (9.4-12.1) H 11/27/17 20:42 - Impressions Impressions Echocardiogram 11/28/17 20:20 Impressions: LVEF 65%. Indeterminate diastolic function. Definity echo contrast was used. Normal right ventricular structure and function. Severely dilated left atrium. Mild-moderate tricuspid regurgitation. Mild pulmonary hypertension. Left Ventricular Wall Motion: Rest Echo Findings All wall segments showed normal motion. Findings: Study Quality * Technically adequate exam. ECG Findings * Atrial fibrillation. Left Ventricle * LVEF 65%. * Normal LV chamber size, wall thickness and function. * Indeterminate diastolic function. * Definity echo contrast was used. Right Ventricle * Normal right ventricular structure and function. Left Atrium * Severely dilated left atrium. Right Atrium * Mildly dilated right atrium. Mitral Valve * Normal mitral valve structure. * No mitral stenosis. * Trace mitral regurgitation. Aortic Valve * No aortic regurgitation. * Aortic valve not well visualized. * No aortic stenosis. Tricuspid Valve * Normal tricuspid valve structure. * Mild-moderate tricuspid regurgitation. * Estimated RA pressure is 3 mmHg. * Estimated RVSP is 43 mmHg. * Mild pulmonary hypertension. Pulmonic Valve * Pulmonic valve is not well visualized. * No pulmonic stenosis. * No pulmonic regurgitation. Pulmonary Artery * Pulmonary artery not well visualized. Aorta * Not optimally visualized. Pericardium * There is no pericardial effusion present. Interatrial Septum * No evidence of PFO by color Doppler. IVC * Normal IVC dimensions and inspiratory collapse. - VTE Documentation of Mechanical Device: Intermittent pneumatic compression device Consult Discharge Plan - Plan Referrals: Jayden Romero MD [Primary Care Provider] -
[2017-11-29] MEDS: predniSONE 20 MG TABLET PO SCH (10:58)
[2017-11-29] MEDS: Ciprofloxacin OPTH Soln 2.5 ML BOTTLE BOTH EYES SCH ×4 (11:00→21:23)
[2017-11-29] MEDS: 0.9 % Sodium Chloride 1,000 ML IVC SCH ×2 (12:40→17:13)
[2017-11-29 13:37] LABS: Basophils % 0.3 %; Hemoglobin 10.7 g/dL (12.9-16.9); Mean Platelet Volume 12.1 fL (9.4-12.4)
[2017-11-29 13:38] LABS: Eosinophils # 0.2 K/mcL (0.0-0.6); Eosinophils % 2.3 %; Hematocrit 32.9 % (37.5-50.1); Immature Granulocytes % 0.1 % (0-4); Lymphocytes # 1.5 K/mcL (0.6-4.6); Lymphocytes % 20.1 %; Mean Corpuscular HGB Conc 32.5 g/dL (31.6-35.5); Mean Corpuscular Hemoglobin 33.9 pg (28.0-33.3); Mean Corpuscular Volume 104.1 fL (83.0-100.0); Monocytes # 0.5 K/mcL (0.0-1.3); Monocytes % 6.8 %; Red Blood Count 3.16 M/mcL (4.19-5.50); Segmented Neutrophils % 70.4 %
[2017-11-29 13:48] LABS: BUN/Creatinine Ratio 12 (6-26); Blood Urea Nitrogen 10 mg/dL (8-23); Calcium 7.7 mg/dL (8.6-10.3); Carbon Dioxide 26 mEq/L (23-29); Chloride 111 mEq/L (98-107); Creatine Kinase 1018 Units/L (30-223); Glucose 137 mg/dL (70-105); Osmolality,Calculated 295 (280-300); Potassium 3.6 mEq/L (3.5-5.1); Sodium 142 mEq/L (136-145); eGFR For African Americans > 60 (> 60); eGFR For Non-African Americans > 60 (> 60)
[2017-11-29 13:49] LABS: Troponin I 0.03 ng/mL (< 0.04)
[2017-11-29 14:07] LABS: Neutrophils # 5.1 K/mcL (1.6-8.9); Platelet Count 57 K/mcL (140-400)
[2017-11-30] MEDS: Budesonide/Formoterol 160/4.5 MDI IH SCH ×3 (00:01→20:28)
[2017-11-30] MEDS: 0.9 % Sodium Chloride 1,000 ML IVC SCH ×3 (00:19→20:00)
[2017-11-30] MEDS: Ciprofloxacin OPTH Soln 2.5 ML BOTTLE BOTH EYES SCH ×6 (00:24→23:20)
[2017-11-30 04:31] LABS: Alanine Aminotransferase 17 Units/L (7-52); Albumin 2.6 g/dL (3.5-5.7); Albumin/Globulin Ratio 1.5 (1.1-2.2); Alkaline Phosphatase 76 Units/L (34-104); Aspartate Amino Transferase 57 Units/L (13-39); BUN/Creatinine Ratio 17 (6-26); Bilirubin,Total 1.6 mg/dL (0.3-1.0); Blood Urea Nitrogen 11 mg/dL (8-23); Carbon Dioxide 24 mEq/L (23-29); Chloride 112 mEq/L (98-107); Creatine Kinase 705 Units/L (30-223); Globulin 1.7 g/dL (2.4-3.5); Glucose 143 mg/dL (70-105); Osmolality,Calculated 292 (280-300); Potassium 3.7 mEq/L (3.5-5.1); Sodium 140 mEq/L (136-145); Total Protein 4.3 g/dL (6.4-8.9); eGFR For African Americans > 60 (> 60); eGFR For Non-African Americans > 60 (> 60)
[2017-11-30] MEDS ORDERED: Magnesium Sulfate 2 GM/100 ML PIGGYBACK IV ONE (09:28)
[2017-11-30] MEDS: predniSONE 20 MG TABLET PO SCH (09:45)
[2017-11-30] MEDS: Folic Acid 1 MG TABLET PO SCH (09:45)
[2017-11-30] MEDS: Aspirin Enteric Coated 325 MG Tablet PO SCH (09:45)
--- NOTE | 2017-11-30 09:53 | Internal Med Progress Note ---
Date of Encounter: 11/30/17 Time of Encounter: 09:51 - Assessment and plan (1) CVA (cerebral vascular accident) Current Visit: Yes Status: Acute Assessment and plan: Recently diagnosed A. fib in July not on any anticoagulation except aspirin. CT brain done and was or ER with abnormal finding acute versus subacute right posterior cerebral artery infarction therefore transferred to this hospital for advance care. carotid ultrasound, echocardiogram pending, continue aspirin and discontinue statin due to acute rhabdomyolysis. Consider starting Zetia Physical therapy order, fall precautions Continue telemetry. Neurology consulted MRI of the brain showed:1. No acute intracranial abnormality. 2. 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 3. Diffuse parenchymal volume loss with mild chronic white matter microvascular ischemic changes. 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 Qualifiers: Encounter type: initial encounter Qualified Code(s): W19.XXXA - Unspecified fall, initial encounter (5) A-fib Current Visit: Yes Status: Chronic Assessment and plan: No RVR. Patient is not on anticoagulation (alcohol abuse and high risk of falling). Telemetry. Echocardiogram showed an ejection fraction of 65% with moderate tricuspid regurgitation. Qualifiers: Atrial fibrillation type: chronic Qualified Code(s): I48.2 - Chronic atrial fibrillation (6) Chronic alcoholism Current Visit: Yes Status: Chronic Assessment and plan: Alcohol level was 37 Chronic alcohol or drinking but not sure about withdrawal. Drinks 1 pint of whiskey every day Taper Librium, Ativan IV as needed (7) Hypertension Current Visit: Yes Status: Acute Assessment and plan: Hold Lasix. Close monitoring. Adjust home medication on discharge if needed continue lisinopril The patient was on Lopressor 12.5 mg twice a day but was found to be bradycardic , this was switched to Toprol 12.5 mg daily, his currently stable Qualifiers: Hypertension type: essential hypertension Qualified Code(s): I10 - Essential (primary) hypertension (8) Conjunctivitis Current Visit: Yes Status: Acute Assessment and plan: Continue ciprofloxacin ophthalmic solution day #2 Qualifiers: Conjunctivitis type: acute Acute conjunctivitis type: bacterial Laterality: bilateral Qualified Code(s): H10.33 - Unspecified acute conjunctivitis, bilateral (9) Generalized pain Current Visit: Yes Status: Acute Assessment and plan: Secondary to acute rhabdomyolysis ESR was normal - Time Spent With Patient Total time spent is greater than 50% in coordination of care (as documented) at patient's floor/unit and/or counseling patient: - Subjective Interval history: Complains of less muscular pain everywhere, mainly on his shoulders and hips, denies any dizziness, no abdominal pain, fevers, chest or shortness of breath, no dysuria or diarrhea - Constitutional Vitals: Temp Pulse Resp BP Pulse Ox 98.1 F 58 17 131/61 99 11/30/17 07:34 11/30/17 07:34 11/30/17 07:34 11/30/17 07:34 11/30/17 07:34 General appearance: Present: A&O X 3 Exam: - Head Head exam: Present: atraumatic, normocephalic - Eye Eye exam: Present: conjuntiva pink, sclera anicteric. 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 - Neck Neck exam general surgery: Present: supple, trachea midline. Absent: lymphadenopathy Additional comments: 2 cm occipital scalp laceration not infected - Respiratory Respiratory exam: Present: decreased breath sounds, CTAB. Absent: accessory muscle use, rales, rhonchi, wheezes - Cardiovascular Cardiovascular exam: Present: RRR, +S1, +S2. Absent: diastolic murmur, gallop, rubs, systolic murmur - GI/Abdominal GI/Abdominal exam: Present: normal bowel sounds, soft, no peritoneal signs. Absent: distended, tenderness - Extremities Exam Extremities exam: Present: warm, radial pulses palpable and symmetrical. Absent : calf tenderness, cyanotic, pedal edema Additional comments: left upper extremity minimal weakness, pain is elicited while trying to raise his arms and legs - Neurological Exam Neurological exam: Present: CN II-XII intact, oriented X3, no focal deficits. Absent: pronater drift, facial droop, speech deficit - Skin Skin exam: Present: dry, intact Diffuse muscle tenderness Internal Medicine: Result - Labs CBC & Chem 7: 11/29/17 13:24 11/30/17 03:45 Labs: Short CBC 11/29/17 Range/Units 13:24 WBC 7.3 (4.3-11.1) K/mcL Hgb 10.7 L (12.9-16.9) g/dL Hct 32.9 L (37.5-50.1) % Plt Count 57 L (140-400) K/mcL Neutrophils # 5.1 (1.6-8.9) K/mcL BMP 11/29/17 11/30/17 09:39 03:45 Sodium 142 140 Potassium 3.6 3.7 Chloride 111 H 112 H Carbon Dioxide 26 24 BUN 10 11 Creatinine 0.85 0.66 L Glucose 137 H 143 H Calcium 7.7 L 7.0 L Cardiac Enzymes 11/29/17 Range/Units 09:39 Troponin I 0.03 (< 0.04) ng/mL Liver Function 11/30/17 Range/Units 03:45 Total Bilirubin 1.6 H (0.3-1.0) mg/dL AST 57 H (13-39) Units/L ALT 17 (7-52) Units/L Alkaline Phosphatase 76 (34-104) Units/L Albumin 2.6 L (3.5-5.7) g/dL - ABG Interpretation ABG results: PT/INR, D-dimer PT 14.1 Seconds (9.4-12.1) H 11/27/17 20:42 - VTE Documentation of Mechanical Device: Intermittent pneumatic compression device Consult Discharge Plan - Plan Referrals: Jayden Romero MD [Primary Care Provider] -
[2017-11-30] MEDS ORDERED: Magnesium Sulfate 2 GM in D5% in Water 100 ML IVPB ONE (10:00)
[2017-12-01] MEDS: Ciprofloxacin OPTH Soln 2.5 ML BOTTLE BOTH EYES SCH ×5 (02:53→23:12)
[2017-12-01] MEDS: Budesonide/Formoterol 160/4.5 MDI IH SCH ×2 (07:42→22:02)
--- NOTE | 2017-12-01 07:58 | Internal Med Progress Note ---
Date of Encounter: 12/01/17 Time of Encounter: 07:56 - Assessment and plan (1) CVA (cerebral vascular accident) Current Visit: Yes Status: Acute Assessment and plan: Recently diagnosed A. fib in July not on any anticoagulation except aspirin. CT brain done and was or ER with abnormal finding acute versus subacute right posterior cerebral artery infarction therefore transferred to this hospital for advance care. , continue aspirin and discontinued statin due to acute rhabdomyolysis. Consider starting Zetia upon discharge Physical therapy order, fall precautions Continue telemetry. Neurology consulted MRI of the brain showed:1. No acute intracranial abnormality. 2. 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 3. Diffuse parenchymal volume loss with mild chronic white matter microvascular ischemic changes Echocardiogram showed: LVEF 65% Indeterminate diastolic function. Definity echo contrast was used. Normal right ventricular structure and function. Severely dilated left atrium. Mild-moderate tricuspid regurgitation. Mild pulmonary hypertension. Started duplex showed: Bilateral carotid system has nonstenotic plaque. 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 (2) Volume overload Current Visit: Yes Status: Acute Assessment and plan: possible acute diastolic CHF exacerbation due to IVF ( became overloaded despite de use of minimal hydration ) restart IV lasix check CXR Qualifiers: Hypervolemia type: unspecified Qualified Code(s): E87.70 - Fluid overload, unspecified (3) Rhabdomyolysis Current Visit: Yes Status: Acute Assessment and plan: Due to trauma and possibly due to statins CKs improving Stop IVF, he is now overloaded, resume Lasix Qualifiers: Rhabdomyolysis type: traumatic Encounter type: sequela Qualified Code(s) : T79.6XXS - Traumatic ischemia of muscle, sequela (4) Syncope Current Visit: Yes Status: Acute Assessment and plan: non recurrent Qualifiers: Syncope type: heat syncope Encounter type: initial encounter Qualified Code(s): T67.1XXA - Heat syncope, initial encounter (5) Fall Current Visit: Yes Status: Acute Assessment and plan: Recurrent falls. 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 Needs placement. Qualifiers: Encounter type: initial encounter Qualified Code(s): W19.XXXA - Unspecified fall, initial encounter (6) A-fib Current Visit: Yes Status: Chronic Assessment and plan: No RVR. Patient is not on anticoagulation (alcohol abuse and high risk of falling). Telemetry. Echocardiogram showed an ejection fraction of 65% with moderate tricuspid regurgitation. Qualifiers: Atrial fibrillation type: chronic Qualified Code(s): I48.2 - Chronic atrial fibrillation (7) Chronic alcoholism Current Visit: Yes Status: Chronic Assessment and plan: Alcohol level was 37 Chronic alcohol or drinking but not sure about withdrawal. Drinks 1 pint of whiskey every day Stop Librium, Ativan IV as needed (8) Hypertension Current Visit: Yes Status: Acute Assessment and plan: Hold Lasix. Close monitoring. Adjust home medication on discharge if needed continue lisinopril The patient was on Lopressor 12.5 mg twice a day but was found to be bradycardic , this was switched to Toprol 12.5 mg daily, his currently stable Qualifiers: Hypertension type: essential hypertension Qualified Code(s): I10 - Essential (primary) hypertension (9) Conjunctivitis Current Visit: Yes Status: Acute Assessment and plan: Continue ciprofloxacin ophthalmic solution day #3 Qualifiers: Conjunctivitis type: acute Acute conjunctivitis type: bacterial Laterality: bilateral Qualified Code(s): H10.33 - Unspecified acute conjunctivitis, bilateral (10) Generalized pain Current Visit: Yes Status: Acute Assessment and plan: Secondary to acute rhabdomyolysis ESR was normal - Time Spent With Patient Total time spent is greater than 50% in coordination of care (as documented) at patient's floor/unit and/or counseling patient: - Subjective Interval history: Feeling SOB, legs have become extremely swollen. Complains of less muscular pain, mainly on his shoulders and hips, denies any dizziness, no abdominal pain, fevers, chest or shortness of breath, no dysuria or diarrhea - Constitutional Vitals: Temp Pulse Resp BP Pulse Ox 97.8 F 91 18 114/67 95 12/01/17 07:20 12/01/17 07:20 12/01/17 07:43 12/01/17 07:20 12/01/17 07:43 General appearance: Present: A&O X 3 Exam: - Head Head exam: Present: atraumatic, normocephalic - Eye Eye exam: Present: conjuntiva pink, sclera anicteric. 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 - Neck Neck exam general surgery: Present: supple, trachea midline. Absent: lymphadenopathy Additional comments: 2 cm occipital scalp laceration not infected - Respiratory Respiratory exam: Present: decreased breath sounds, CTAB, diffuse fine crackles. Absent: accessory muscle use, rales, rhonchi, wheezes - Cardiovascular Cardiovascular exam: Present: RRR, +S1, +S2. Absent: diastolic murmur, gallop, rubs, systolic murmur - GI/Abdominal GI/Abdominal exam: Present: normal bowel sounds, soft, no peritoneal signs. Absent: distended, tenderness - Extremities Exam Extremities exam: Present: warm, radial pulses palpable and symmetrical. Absent : calf tenderness, cyanotic Additional comments: left upper extremity minimal weakness, pain is elicited while trying to raise his arms and legs + 3 pitting edema in both lower extremities - Neurological Exam Neurological exam: Present: CN II-XII intact, oriented X3, no focal deficits. Absent: pronater drift, facial droop, speech deficit - Skin Skin exam: Present: dry, intact Less Diffuse muscle tenderness Internal Medicine: Result - Labs CBC & Chem 7: 11/29/17 13:24 11/30/17 03:45 - ABG Interpretation ABG results: PT/INR, D-dimer PT 14.1 Seconds (9.4-12.1) H 11/27/17 20:42 - VTE Documentation of Mechanical Device: Intermittent pneumatic compression device Consult Discharge Plan - Plan Referrals: Jayden Romero MD [Primary Care Provider] -
[2017-12-01] MEDS: Folic Acid 1 MG TABLET PO SCH (11:36)
[2017-12-01] MEDS: Aspirin Enteric Coated 325 MG Tablet PO SCH (11:36)
[2017-12-01] MEDS: Furosemide 20 MG/2 ML VIAL IVP SCH ×2 (11:37→17:38)
[2017-12-01] MEDS: *HR* HYDROcodone/Acet 5/325 mg TABLET PO PRN (17:52)
[2017-12-02 05:44] LABS: BUN/Creatinine Ratio 20 (6-26); Blood Urea Nitrogen 12 mg/dL (8-23); Calcium 7.3 mg/dL (8.6-10.3); Carbon Dioxide 25 mEq/L (23-29); Chloride 113 mEq/L (98-107); Creatine Kinase 147 Units/L (30-223); Glucose 102 mg/dL (70-105); Osmolality,Calculated 292 (280-300); Potassium 3.5 mEq/L (3.5-5.1); Sodium 141 mEq/L (136-145); eGFR For African Americans > 60 (> 60); eGFR For Non-African Americans > 60 (> 60)
[2017-12-02] MEDS: Ciprofloxacin OPTH Soln 2.5 ML BOTTLE BOTH EYES SCH ×5 (06:57→23:06)
[2017-12-02] MEDS: Budesonide/Formoterol 160/4.5 MDI IH SCH ×2 (07:34→20:02)
--- NOTE | 2017-12-02 09:27 | Internal Med Progress Note ---
Date of Encounter: 12/02/17 Time of Encounter: 09:25 - Assessment and plan (1) CVA (cerebral vascular accident) Current Visit: Yes Status: Acute Assessment and plan: Recently diagnosed A. eneida in July not on any anticoagulation except aspirin. CT brain done and was or ER with abnormal finding acute versus subacute right posterior cerebral artery infarction therefore transferred to this hospital for advance care. continue aspirin discontinued statin due to acute rhabdomyolysis. Consider starting Zetia upon discharge Physical therapy order, fall precautions Neurology signed off MRI of the brain showed:1. No acute intracranial abnormality. 2. 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 3. Diffuse parenchymal volume loss with mild chronic white matter microvascular ischemic changes Echocardiogram showed: LVEF 65% Indeterminate diastolic function. Definity echo contrast was used. Normal right ventricular structure and function. Severely dilated left atrium. Mild-moderate tricuspid regurgitation. Mild pulmonary hypertension. Carotid duplex showed: Bilateral carotid system has nonstenotic plaque. 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 Findings concerning for a right lower lobe pneumonia. 2. Bilateral pleural effusions, right greater than left. Not symptomatic for pnaumonia at all Qualifiers: Hypervolemia type: unspecified Qualified Code(s): E87.70 - Fluid overload, unspecified (3) Rhabdomyolysis Current Visit: Yes Status: Acute Assessment and plan: Due to trauma and possibly due to statins resolved Stopped IVF due to volumeoverload, resumed Lasix Qualifiers: Rhabdomyolysis type: traumatic Encounter type: sequela Qualified Code(s) : T79.6XXS - Traumatic ischemia of muscle, sequela (4) Syncope Current Visit: Yes Status: Acute Assessment and plan: non recurrent Qualifiers: Syncope type: heat syncope Encounter type: initial encounter Qualified Code(s): T67.1XXA - Heat syncope, initial encounter (5) Fall Current Visit: Yes Status: Acute Assessment and plan: Recurrent falls. 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 Needs placement. Qualifiers: Encounter type: initial encounter Qualified Code(s): W19.XXXA - Unspecified fall, initial encounter (6) A-fib Current Visit: Yes Status: Chronic Assessment and plan: No RVR. Patient is not on anticoagulation (alcohol abuse and high risk of falling). Telemetry. Echocardiogram showed an ejection fraction of 65% with moderate tricuspid regurgitation. Qualifiers: Atrial fibrillation type: chronic Qualified Code(s): I48.2 - Chronic atrial fibrillation (7) Chronic alcoholism Current Visit: Yes Status: Chronic Assessment and plan: Alcohol level was 37 Chronic alcohol or drinking but not sure about withdrawal. Drinks 1 pint of whiskey every day Stop Librium, Ativan IV as needed (8) Hypertension Current Visit: Yes Status: Acute Assessment and plan: continue Lasix. continue lisinopril The patient was on Lopressor 12.5 mg twice a day but was found to be bradycardic , this was switched to Toprol 12.5 mg daily, his currently stable Qualifiers: Hypertension type: essential hypertension Qualified Code(s): I10 - Essential (primary) hypertension (9) Conjunctivitis Current Visit: Yes Status: Acute Assessment and plan: Continue ciprofloxacin ophthalmic solution day #4 Qualifiers: Conjunctivitis type: acute Acute conjunctivitis type: bacterial Laterality: bilateral Qualified Code(s): H10.33 - Unspecified acute conjunctivitis, bilateral (10) Generalized pain Current Visit: Yes Status: Acute Assessment and plan: Secondary to acute rhabdomyolysis ESR was normal - Time Spent With Patient Total time spent is greater than 50% in coordination of care (as documented) at patient's floor/unit and/or counseling patient: - Subjective Interval history: Feeling slightly better, legs are still swollen. Complains of less muscular pain, mainly on his shoulders and hips, denies any dizziness, no abdominal pain, fevers, chest or shortness of breath, no dysuria or diarrhea - Constitutional Vitals: Temp Pulse Resp BP Pulse Ox 97.7 F 53 16 131/62 95 12/02/17 07:37 12/02/17 07:37 12/02/17 07:37 12/02/17 07:37 12/02/17 07:37 General appearance: Present: A&O X 3 Exam: - Head Head exam: Present: atraumatic, normocephalic - Eye Eye exam: Present: conjuntiva pink, sclera anicteric. 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 - Neck Neck exam general surgery: Present: supple, trachea midline. Absent: lymphadenopathy Additional comments: 2 cm occipital scalp laceration not infected - Respiratory Respiratory exam: Present: decreased breath sounds, CTAB, diffuse fine crackles. Absent: accessory muscle use, rales, rhonchi, wheezes - Cardiovascular Cardiovascular exam: Present: RRR, +S1, +S2. Absent: diastolic murmur, gallop, rubs, systolic murmur - GI/Abdominal GI/Abdominal exam: Present: normal bowel sounds, soft, no peritoneal signs. Absent: distended, tenderness - Extremities Exam Extremities exam: Present: warm, radial pulses palpable and symmetrical. Absent : calf tenderness, cyanotic Additional comments: left upper extremity minimal weakness, pain is elicited while trying to raise his arms and legs + 3 pitting edema in both lower extremities - Neurological Exam Neurological exam: Present: CN II-XII intact, oriented X3, no focal deficits. Absent: pronater drift, facial droop, speech deficit - Skin Skin exam: Present: dry, intact Less Diffuse muscle tenderness Internal Medicine: Result - Labs CBC & Chem 7: 11/29/17 13:24 12/02/17 04:34 Labs: BMP 12/02/17 04:34 Sodium 141 Potassium 3.5 Chloride 113 H Carbon Dioxide 25 BUN 12 Creatinine 0.61 L Glucose 102 Calcium 7.3 L - ABG Interpretation ABG results: PT/INR, D-dimer PT 14.1 Seconds (9.4-12.1) H 11/27/17 20:42 - Impressions Impressions Chest X-Ray 12/01/17 07:55 IMPRESSION: 1. Findings concerning for a right lower lobe pneumonia. 2. Bilateral pleural effusions, right greater than left. RECOMMENDATION: Follow-up imaging is recommended after treatment to ensure resolution. D/ / 12/01/2017 10:18:54 Rohtih Mireels MD / Dannielle wSartz Interpreting Provider: Rohith Mireles MD - VTE Documentation of Mechanical Device: Intermittent pneumatic compression device Consult Discharge Plan - Plan Referrals: Jayden Romero MD [Primary Care Provider] -
[2017-12-02] MEDS: Folic Acid 1 MG TABLET PO SCH (09:34)
[2017-12-02] MEDS: Aspirin Enteric Coated 325 MG Tablet PO SCH (09:34)
[2017-12-02] MEDS: Furosemide 20 MG/2 ML VIAL IVP SCH ×2 (09:35→18:17)
[2017-12-03] MEDS: Ciprofloxacin OPTH Soln 2.5 ML BOTTLE BOTH EYES SCH ×3 (00:08→09:10)
[2017-12-03 04:42] LABS: BUN/Creatinine Ratio 17 (6-26); Blood Urea Nitrogen 12 mg/dL (8-23); Calcium 7.3 mg/dL (8.6-10.3); Carbon Dioxide 25 mEq/L (23-29); Chloride 106 mEq/L (98-107); Glucose 97 mg/dL (70-105); Osmolality,Calculated 280 (280-300); Potassium 3.7 mEq/L (3.5-5.1); Sodium 135 mEq/L (136-145); eGFR For African Americans > 60 (> 60); eGFR For Non-African Americans > 60 (> 60)
[2017-12-03] MEDS: 0.9 % Sodium Chloride 1,000 ML IVC SCH (07:06)
[2017-12-03] MEDS: Budesonide/Formoterol 160/4.5 MDI IH SCH (07:35)
[2017-12-03 07:56] VITALS: BP 124/70
[2017-12-03] MEDS: Folic Acid 1 MG TABLET PO SCH (09:06)
[2017-12-03] MEDS: Furosemide 20 MG/2 ML VIAL IVP SCH (09:06)
[2017-12-03] MEDS: Aspirin Enteric Coated 325 MG Tablet PO SCH (09:06)
--- NOTE | 2017-12-03 09:34 | Discharge Summary ---
- NOTES TO OUTPATIENT PROVIDER Notes to Outpatient Provider: Continue Toprol at a lower dose of 12.5 md daily, hold dose if heart rate less than 55 or symptomatic. Avoid statins due to rhabdomyolisis with low doses of simvastatin and atorvastatin. Follow-up with neurology within the next 2-3 weeks. 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 (2) Volume overload Priority: Secondary Status: Acute Assessment and Plan: Bilateral pleural effusion 2ry to acute diastolic CHF exacerbation due to IVF used for rhabdo ( became overloaded despite de use of minimal hydration ) Qualifiers: Hypervolemia type: unspecified Qualified Code(s): E87.70 - Fluid overload, unspecified (3) Rhabdomyolysis Priority: Primary Status: Acute Assessment and Plan: Due to trauma and possibly due to statins Qualifiers: Rhabdomyolysis type: traumatic Encounter type: sequela Qualified Code(s) : T79.6XXS - Traumatic ischemia of muscle, sequela (4) Syncope Priority: Primary Status: Acute Assessment and Plan: non recurrent Qualifiers: Syncope type: heat syncope Encounter type: initial encounter Qualified Code(s): T67.1XXA - Heat syncope, initial encounter (5) Fall Priority: Primary Status: Acute Assessment and Plan: Recurrent falls. 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 Needs placement. Qualifiers: Encounter type: initial encounter Qualified Code(s): W19.XXXA - Unspecified fall, initial encounter (6) A-fib Priority: Secondary Status: Chronic Assessment and Plan: No RVR. Patient is not on anticoagulation (alcohol abuse and high risk of falling). Telemetry. Echocardiogram showed an ejection fraction of 65% with moderate tricuspid regurgitation. Qualifiers: Atrial fibrillation type: chronic Qualified Code(s): I48.2 - Chronic atrial fibrillation (7) Chronic alcoholism Priority: Secondary Status: Chronic Assessment and Plan: Remained stable (8) Hypertension Priority: Secondary Status: Acute Assessment and Plan: continue Lasix. continue lisinopril The patient was on Lopressor 12.5 mg twice a day but was found to be bradycardic , this was switched to Toprol 12.5 mg daily, his currently stable Qualifiers: Hypertension type: essential hypertension Qualified Code(s): I10 - Essential (primary) hypertension (9) Conjunctivitis Priority: Secondary Status: Acute Assessment and Plan: Improved on ciprofloxacin ophthalmic solution day #5 Qualifiers: Conjunctivitis type: acute Acute conjunctivitis type: bacterial Laterality: bilateral Qualified Code(s): H10.33 - Unspecified acute conjunctivitis, bilateral (10) Generalized pain Priority: Primary Status: Acute Assessment and Plan: Secondary to acute rhabdomyolysis ESR was normal Hospital course: Mr. Jo is a 82 year old male with history of recently diagnosed A. fib in July 2017, COPD not O 2 dep, hypertension, chronic alcoholism 1 patient almost everyday for several years, remote a smoker quit almost 20 years back, history of mild stroke, diastolic CHF was transferred from [facility] ER for further evaluation of syncope and possible CVA based on CT head report with acute versus subacute infarction right posterior cerebral artery. Patient lived alone and the her grandson checked on him almost every day. As per patient he fell on the floor and lost consciousness for a while nausea over the time around 8:00 tonight while going to the bed. When he regained consciousness he crawled to decreased to the bed. Around 9:00 in the morning his grandson came to check on him and found him on the floor then he called EMS. Patient denied any prodromal symptoms before syncope attack. He never had syncope in the past. He denies chest pain, shortness of breath, palpitation , dizziness, sweating, headache, fever, chills, nausea, vomiting, abdominal pain , urinary complaint. Patient hit the back of the head and had superficial laceration on the scalp with minimal bleed. Recently diagnosed A. fib in July not on any anticoagulation except aspirin. CT brain done and was or ER with abnormal finding acute versus subacute right posterior cerebral artery infarction therefore transferred to this hospital for advance care. MRI of the brain showed:1. No acute intracranial abnormality. 2. 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 3. Diffuse parenchymal volume loss with mild chronic white matter microvascular ischemic changes Neurology recommended to continue aspirin Because of his CVA the patient was started on 20 mg of simvastatin which was then switched to only 10 mg of atorvastatin, the patient developed rhabdomyolysis and immediately complained of generalized muscle pain, CK was more than thousand and improved with fluids. Despite being on mild hydration the patient developed volume overload. CXR showed: 1. Findings concerning for a right lower lobe pneumonia. 2. Bilateral pleural effusions, right greater than left. Not symptomatic for pnaumonia at all, for which she was not treated with antibiotics and improved without antibiotic therapy. Had to discontinue statin permanently due to acute rhabdomyolysis. We will start Zetia upon discharge Neurology signed off Echocardiogram showed: LVEF 65% Indeterminate diastolic function. Definity echo contrast was used. Normal right ventricular structure and function. Severely dilated left atrium. Mild-moderate tricuspid regurgitation. Mild pulmonary hypertension. Carotid duplex showed: Bilateral carotid system has nonstenotic plaque. Lasix was started Was noticed to have bilateral conjunctivitis that resolved after 5 days of ciprofloxacin ophthalmic solution. - Time Spent with Patient Total time spent providing and/or coordinating discharge services: Greater than 30 minutes (40 min) - Discharge Medications Prescriptions: Ezetimibe [Zetia] 10 mg PO DAILY #30 tablet HYDROcodone/Acet 5/325 mg [[place] 5-325 mg] 1 tab PO Q6H PRN 5 Days #30 tablet PRN Reason: Pain Metoprolol Succinate [Toprol Xl] 12.5 mg PO DAILY #30 tab.er.24h Home Medications: Albuterol Sulfate [Ventolin Hfa] 2 puff IH Q6H PRN 11/27/17 [History] Aspirin [Lo-Dose Aspirin EC] 81 mg PO DAILY 11/27/17 [History] Budesonide/Formoterol 160/4.5 [Symbicort 160/4.5] 2 puff IH BIDR 11/27/17 [ History] Folic Acid 1 mg PO DAILY 11/27/17 [History] Furosemide [Lasix] 40 mg PO BID 11/27/17 [History] Lisinopril [Zestril] 5 mg PO DAILY 11/27/17 [History] Umeclidinium [place] [Incruse Ellipta] 1 puff IH DAILY 11/27/17 [History] Ezetimibe [Zetia] 10 mg PO DAILY #30 tablet 12/03/17 [Rx] HYDROcodone/Acet 5/325 mg [[place] 5-325 mg] 1 tab PO Q6H PRN 5 Days #30 tablet [Rx] Metoprolol Succinate [Toprol Xl] 12.5 mg PO DAILY #30 tab.er.24h 12/03/17 [Rx] Potassium Chloride 10 meq PO DAILY tab.er.prt 12/03/17 [Rx] Allergies/Adverse Reactions: 3 Allergy/AdvReac Type Severity Reaction Status Date / Time levofloxacin [From Levaquin] Allergy Rash Verified 11/27/17 20:26 Penicillins Allergy Anaphylaxis Verified 11/27/17 20:26 Sulfa (Sulfonamide Allergy Rash Verified 11/27/17 20:26 Antibiotics) [id number] Reductase AdvReac Severe Muscle Pain Verified 12/03/17 09:35 Inhibitor Date of admission: 11/30/17 09:50 Primary care physician: Jayden Romero MD Consults: 11/28/17 09:15 Consult to Physical Therapy [CONS] Routine Comment: Evaluate, develop and implement POC Reason for Consult: Post CVA Does patient have active BEDREST order?: No Is patient medically & hemodynamically stable?: Yes Patient assessed for mobility or mobilized this visit?: Yes OT [Consult to Occupational Therapy] [CONS] Routine Comment: Evaluate, develop and implement POC Reason for Consult: post cva Does patient have active BEDREST order?: No Is patient medically & hemodynamically stable?: Yes Patient assessed for mobility or mobilized this visit?: Yes 11/28/17 09:25 Consult to Neurology [CONS] Routine Consulting Provider: [facility] Reason for Consult: CVA Call Completed: Yes 11/28/17 14:21 Consult to Product Evangelist [CONS] Routine Reason for SW Consult: PT/OT recommending SNF 11/28/17 15:05 Consult to Interpret Exam [CONS] Routine Consulting Provider: Augustin Estrada Consult to Interpret Exam: Interpret EEG - Constitutional Vitals: Temp Pulse Resp BP Pulse Ox 98.3 F 66 17 124/70 98 12/03/17 07:53 12/03/17 07:53 12/03/17 07:53 12/03/17 07:53 12/03/17 07:53 General appearance: Present: A&O X 3 Exam: - Head Head exam: Present: atraumatic, normocephalic - Eye Eye exam: Present: conjuntiva pink, sclera anicteric. 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 - Neck Neck exam general surgery: Present: supple, trachea midline. Absent: lymphadenopathy Additional comments: 2 cm occipital scalp laceration not infected - Respiratory Respiratory exam: Present: decreased breath sounds, CTAB, diffuse fine crackles. Absent: accessory muscle use, rales, rhonchi, wheezes - Cardiovascular Cardiovascular exam: Present: RRR, +S1, +S2. Absent: diastolic murmur, gallop, rubs, systolic murmur - GI/Abdominal GI/Abdominal exam: Present: normal bowel sounds, soft, no peritoneal signs. Absent: distended, tenderness - Extremities Exam Extremities exam: Present: warm, radial pulses palpable and symmetrical. Absent : calf tenderness, cyanotic Additional comments: left upper extremity minimal weakness, pain is elicited while trying to raise his arms and legs + 3 pitting edema in both lower extremities have improved - Neurological Exam Neurological exam: Present: CN II-XII intact, oriented X3, no focal deficits. Absent: pronater drift, facial droop, speech deficit - Skin Skin exam: Present: dry, intact Diffuse muscle tenderness has almost resolved - Patient Status Disposition: Transfer SNF Condition: Fair Overall status at discharge: patient is progressing back to baseline - Discharge Instructions Follow Up With: Jayden Romero MD [Primary Care Provider] - Additional Instructions: Continue Toprol at a lower dose of 12.5 md daily, hold dose if heart rate less than 55 or symptomatic. Avoid statins due to rhabdomyolisis with low doses of simvastatin and atorvastatin. Follow-up with neurology within the next 2-3 weeks. Continue Lasix - Diet and Activity Activity: increase activity as tolerated Diet: low fat, low cholesterol - VTE Documentation of Mechanical Device: Intermittent pneumatic compression device
--- NOTE | 2017-12-03 10:08 | Physician Discharge Referral ---
ExtendedCare Referral Info Provider in Charge after Transfer: PCP Institutional Level of Care: Skilled - Diagnosis (1) CVA (cerebral vascular accident) Status: Acute (2) Volume overload Status: Acute (3) Rhabdomyolysis Status: Acute (4) Syncope Status: Acute (5) Fall Status: Acute (6) A-fib Status: Chronic (7) Chronic alcoholism Status: Chronic (8) Hypertension Status: Acute (9) Conjunctivitis Status: Acute (10) Generalized pain Status: Acute - Transfer Medications Prescriptions: Ezetimibe [Zetia] 10 mg PO DAILY #30 tablet HYDROcodone/Acet 5/325 mg [[place] 5-325 mg] 1 tab PO Q6H PRN 5 Days #30 tablet PRN Reason: Pain Metoprolol Succinate [Toprol Xl] 12.5 mg PO DAILY #30 tab.er.24h Home Medications: Albuterol Sulfate [Ventolin Hfa] 2 puff IH Q6H PRN 11/27/17 [History] Aspirin [Lo-Dose Aspirin EC] 81 mg PO DAILY 11/27/17 [History] Budesonide/Formoterol 160/4.5 [Symbicort 160/4.5] 2 puff IH BIDR 11/27/17 [ History] Folic Acid 1 mg PO DAILY 11/27/17 [History] Furosemide [Lasix] 40 mg PO BID 11/27/17 [History] Lisinopril [Zestril] 5 mg PO DAILY 11/27/17 [History] Umeclidinium [place] [Incruse Ellipta] 1 puff IH DAILY 11/27/17 [History] Ezetimibe [Zetia] 10 mg PO DAILY #30 tablet 12/03/17 [Rx] HYDROcodone/Acet 5/325 mg [[place] 5-325 mg] 1 tab PO Q6H PRN 5 Days #30 tablet [Rx] Metoprolol Succinate [Toprol Xl] 12.5 mg PO DAILY #30 tab.er.24h 12/03/17 [Rx] Potassium Chloride 10 meq PO DAILY tab.er.prt 12/03/17 [Rx] Allergies/Adverse Reactions: 3 Allergy/AdvReac Type Severity Reaction Status Date / Time levofloxacin [From Levaquin] Allergy Rash Verified 11/27/17 20:26 Penicillins Allergy Anaphylaxis Verified 11/27/17 20:26 Sulfa (Sulfonamide Allergy Rash Verified 11/27/17 20:26 Antibiotics) Ytvllbt-[id number]-Dyt Reductase AdvReac Severe Muscle Pain Verified 12/03/17 09:35 Inhibitor - Respiratory Orders Smoking Cessation: Smoking cessation has been advised. For more information, call the [place] Tobacco Quit Line at 2-710-OQCE-NOW. - Advance Directives Code Status: Full Code - Diet Orders No Added Salt (WILMA) House Supplement per Dietary: Continue Toprol at a lower dose of 12.5 md daily, hold dose if heart rate less than 55 or symptomatic. Avoid statins due to rhabdomyolisis with low doses of simvastatin and atorvastatin. Follow-up with neurology within the next 2-3 weeks. Continue Lasix CERTIFICATION: I certify that the transfer of the above named patient to an Extended Care Facility is necessary for the continuing treatment of the diagnosis listed. The above information is true and accurate reflection of patient's current condition. Confidential - Redisclosure prohibited without a patient's written consent.
== END 2017-12-03 11:47 | DRG 64 ==
LOC: 2NENU
PROVIDERS: ADMIT Internal Medicine; ATTEND Family Medicine